=== PATIENT | female | born 1990 | race Caucasian/White ===

== ENCOUNTER 2022-03-08 00:17 | Inpatient (IN) ==
[2022-03-08 01:31] LABS: ABS Monocytes 0.6 10^3/ul (0-0.8); ABS Neutrophils 9.2 10^3/ul (1.5-7.7); Eosinophil % 0.3 %; Hematocrit 33 % (35-47); Mean Corpuscular HGB Conc 34 g/dL (31-36); Mean Corpuscular Hemoglobin 30 pg (27-31); Mean Corpuscular Volume 88 fL (80-97); Mean Platelet Volume 7.8 fL (7.4-10.4); Platelet Count 269 10^3/uL (150-450); Red Blood Count 3.69 10^6 /uL (3.70-4.87); Red Cell Distribution Width 15 % (10-15); White Blood Count 11.9 10^3/uL (3.5-10.8)
[2022-03-08 01:32] LABS: Urine Appearance Cloudy; Urine Bilirubin Negative (Negative); Urine Blood 3+ (Negative); Urine Color Amber; Urine Glucose Negative (Negative); Urine Ketones 1+ (Negative); Urine Nitrite Negative (Negative); Urine Protein 1+(30 mg/dL) (Negative); Urine Specific Gravity 1.019 (1.002-1.030); Urine Urobilinogen Negative (Negative)
[2022-03-08 01:36] LABS: Urine Bacteria 3+ (Absent); Urine Red Blood Cell 2+(6-10/hpf) (Absent); Urine Squamous Epithelial Cell Present (Absent); Urine White Blood Cell 3+(>20/hpf) (Absent)
[2022-03-08 01:50] LABS: Urine Benzodiazepine Screen None Detected (None Detect); Urine Cannabinoids Screen None Detected (None Detect); Urine Opiates Screen None Detected (None Detect)
[2022-03-08] MEDS ORDERED: Ondansetron ODT 4 mg TAB 4 MG TAB PO ONE (01:57)
[2022-03-08 02:10] LABS: ALT 13 U/L (7-52); AST 22 U/L (13-39); Acetaminophen < 15 mcg/mL; Albumin 3.5 g/dL (3.2-5.2); Albumin/Globulin Ratio 1.3 (1-3); Alcohol, S < 13 mg/dL (<13); Alkaline Phosphatase 174 U/L (35-149); Anion Gap 10 mmol/L (2-11); Blood Urea Nitrogen 9 mg/dL (6-24); CO2 Carbon Dioxide 23 mmol/L (22-32); Calcium 8.9 mg/dL (8.6-10.3); Chloride 107 mmol/L (101-111); Globulin 2.6 g/dL (2-4); Glucose 92 mg/dL (70-100); Potassium 3.8 mmol/L (3.5-5.0); Salicylate < 2.50 mg/dL (<30); Sodium 140 mmol/L (135-145); Total Protein 6.1 g/dL (6.4-8.9); eGFR CKD-EPI 108.7 (>60)
[2022-03-08 02:24] LABS: TSH Ultra Thyroid Stim Horm 3.55 mcIU/mL (0.34-5.60)
[2022-03-08] MEDS: Vitamin THERAPEUTIC TAB PO SCH (09:18)
[2022-03-08] MEDS ORDERED: Dibucaine 1% OINT 28.35 GM TUBE PR PRN (10:45)
[2022-03-08] MEDS ORDERED: Witch Hazel PAD JAR TOPICAL PRN (10:45)
[2022-03-08] MEDS ORDERED: Lorazepam PYXIS KEY ONE (12:23)
[2022-03-08] MEDS ORDERED: LORazepam 2 mg VIAL 1 ml ONE (12:23)
[2022-03-08] MEDS ORDERED: Lorazepam PYXIS KEY PRN (12:41)
[2022-03-08] MEDS ORDERED: LORazepam 2 mg VIAL 1 ml IM ONE (12:41)
[2022-03-08] MEDS: DESVENLAFAXINE 50 MG PO SCH (13:58)
[2022-03-09] MEDS: Vitamin THERAPEUTIC TAB PO SCH (10:39)
[2022-03-09] MEDS: DESVENLAFAXINE 50 MG PO SCH (10:40)
[2022-03-10 08:24] LABS: HDL Cholesterol 69.9 mg/dL
[2022-03-10] MEDS: DESVENLAFAXINE 50 MG PO SCH (08:45)
[2022-03-10] MEDS: Vitamin THERAPEUTIC TAB PO SCH (08:46)
[2022-03-11] MEDS: Vitamin THERAPEUTIC TAB PO SCH (08:51)
[2022-03-11] MEDS: DESVENLAFAXINE 50 MG PO SCH (08:51)
[2022-03-12] MEDS: DESVENLAFAXINE 50 MG PO SCH (08:33)
[2022-03-12] MEDS: Vitamin THERAPEUTIC TAB PO SCH (08:34)
[2022-03-12] MEDS: Al Hydrox/Mg Hydrox/Simet LIQ 30 ML UDC PO PRN (13:19)
[2022-03-13] MEDS: Vitamin THERAPEUTIC TAB PO SCH (08:38)
[2022-03-13] MEDS: DESVENLAFAXINE 50 MG PO SCH (08:38)
[2022-03-13] MEDS: Al Hydrox/Mg Hydrox/Simet LIQ 30 ML UDC PO PRN (18:25)
[2022-03-14] MEDS: Vitamin THERAPEUTIC TAB PO SCH (08:09)
[2022-03-14] MEDS: DESVENLAFAXINE 50 MG PO SCH (08:09)
[2022-03-14] MEDS ORDERED: CMCS:Desvenlafaxine 50 mg TAB (NF) PO SCH (09:00)
[2022-03-14] MEDS: Al Hydrox/Mg Hydrox/Simet LIQ 30 ML UDC PO PRN (22:04)
[2022-03-15] MEDS: Vitamin THERAPEUTIC TAB PO SCH (08:20)
[2022-03-15] MEDS: CMCS:Desvenlafaxine 50 mg TAB (NF) PO SCH (08:20)
[2022-03-16] MEDS: Vitamin THERAPEUTIC TAB PO SCH (09:44)
[2022-03-16] MEDS: CMCS:Desvenlafaxine 50 mg TAB (NF) PO SCH (09:45)
[2022-03-16 16:49] VITALS: BP 139/91
[2022-03-16] MEDS: Al Hydrox/Mg Hydrox/Simet LIQ 30 ML UDC PO PRN (17:44)
[2022-03-17] MEDS: CMCS:Desvenlafaxine 50 mg TAB (NF) PO SCH (09:54)
[2022-03-17] MEDS: Vitamin THERAPEUTIC TAB PO SCH (09:55)
== END 2022-03-17 14:10 | disposition home or self-care (01) | DRG 776 ==
LOC: ED 00:17 → BSU 02:15
PROVIDERS: ADMIT Student in an Organized Health Care Education/Training Program; ATTEND Psychiatry & Neurology Psychiatry